=== PATIENT | female | born 1980 | race Caucasian/White ===

== ENCOUNTER 2020-10-12 15:34 | Outpatient (CLI) | payer BC | END 2020-10-12 23:59 | disposition home or self-care (01) | LOC: RAD 15:34 | PROVIDERS: ATTEND Radiology Diagnostic Radiology | DX: S52.351 Displaced comminuted fracture of shaft of radius, right arm (principal); L84 Corns and callosities; X58.XXXD Exposure to other specified factors, subsequent encounter ==